=== PATIENT | male | born 1995 | race Caucasian/White ===

== ENCOUNTER 2021-05-15 02:43 | Emergency (ER) | payer SELFPAY ==
[~2021-05-15] VITALS: Ht 160 cm; Wt 59.0 kg
--- NOTE | 2021-05-15 02:53 | NUR ---
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
--- NOTE | 2021-05-15 02:56 | NUR ---
Cedrick TRINIDAD AT BEDSIDE, MSE IN PROGRESS.
[2021-05-15] MEDS ORDERED: SODIUM BICARBONATE 4.2 % (NEUT) 5 ML VIAL TP ONE (03:00)
[2021-05-15] MEDS ORDERED: LIDOCAINE 1%-EPI 1:100,000 20 ML VIAL IJ ONE (03:00)
[2021-05-15] MEDS ORDERED: NEOMY/BACITRA/POLYMYXIN B OINT UD PACKET TP ONE ×2 (03:00→03:09)
--- NOTE | 2021-05-15 03:24 | NUR ---
Patient discharged to home in stable condition. Denies any pain/discomfort upon discharge. Written and verbal after care instructions given. Patient verbalizes understanding of instructions. Stressed follow up or return to ER for worsening s/s. Steady gait.
[2021-05-15 03:25] VITALS: BP 125/70
== END 2021-05-15 03:24 | disposition home or self-care (01) ==
LOC: ER 02:44
DX: T14.8XXA Other injury of unspecified body region, initial encounter (principal); W45.8XXA Other foreign body or object entering through skin, initial encounter; W22.8XXA Striking against or struck by other objects, initial encounter; Y92.69 Other specified industrial and construction area as the place of occurrence of the external cause
CPT/HCPCS: A4663